=== PATIENT | female | born 1955 | race Caucasian/White ===

== ENCOUNTER 2024-06-15 14:03 | Outpatient (CLI) | payer MEDICARE | END 2024-06-15 14:04 | disposition home or self-care (01) | LOC: CSHMRI 14:03 | PROVIDERS: ATTEND Orthopaedic Surgery | DX: M47.12 Other spondylosis with myelopathy, cervical region (principal); M47.22 Other spondylosis with radiculopathy, cervical region; M48.02 Spinal stenosis, cervical region | CPT/HCPCS: 72141 ==